=== PATIENT | male | born 1955 | race Caucasian/White ===

== ENCOUNTER 2022-09-14 08:50 | Emergency (ER) | payer MEDICARE, OTHER, SELFPAY ==
[2022-09-14 09:22] VITALS: BP 174/67; PULSE 53; RESP 20; TEMP 36.6; O2SAT 99
--- NOTE | 2022-09-14 09:39 | ECG_ITS ---
Measurements Intervals [place] Rate: 53 P: -5 ME: 208 QRS: 49 QRSD: 97 T: 34 QT: 437 QTc: 414 Interpretive Statements SINUS BRADYCARDIA OTHERWISE NORMAL NO PREVIOUS ECG AVAILABLE FOR COMPARISON Electronically Signed On 09-15-2022 6:14:23 CLIENT SERVICES ASSISTANT by Jamel Biswas M.D.
--- NOTE | 2022-09-14 09:54 | ED.GENADULT ---
HPI - General Adult General Chief complaint: Weakness Stated complaint: Hypertension Time Seen by Provider: 09/14/22 09:35 Source: patient Mode of arrival: ambulatory Limitations: no limitations History of Present Illness HPI narrative: 67-year-old male presents with complaint of generalized weakness, body aches and chills, fatigue starting this morning. reports that when he smelled breakfast cooking he felt nauseated, vomited once. Continues to feel nauseated. Reports that his family that he is staying with at this time had flu approximately 1 week ago. Is visiting from 2[place]5 hours away to see grandpeggy's [employer] program, was heading back home today. He reports history of AFib. Wears a walker to keep track of heart rate and has been anywhere from 40s to 122. Has not missed any doses of his medications. States he checks blood pressure at today and was high. No headache, chest pain or shortness of breath. All systems reviewed and negative except as noted above. Related Data Home Medications Medication Instructions Recorded Confirmed rivaroxaban 20 mg tablet (Xarelto) 20 mg PO DAILY 09/14/22 09/14/22 sotalol 160 mg tablet 160 mg PO DAILY 09/14/22 09/14/22 tamsulosin 0.4 mg capsule 0.4 mg PO DAILY 09/14/22 09/14/22 Allergies Allergy/AdvReac Type Severity Reaction Status Date / Time Tetracyclines Allergy Other Verified 09/14/22 09:20 Review of Systems Review of Systems: CONSTITUTIONAL: Denies fever . Reports chills, pain and sweats. EYES: Denies visual changes, redness, or discharge. ENT: Denies rhinorrhea, congestion, sore throat, or otalgia. CARDIOVASCULAR: Denies chest pain, palpitations, or edema. RESPIRATORY: Denies cough or dyspnea. GASTROINTESTINAL: Denies abdominal pain. Reportsnausea, vomiting. Denies diarrhea. GENITOURINARY: Denies dysuria or hematuria. SKIN: Denies rash or itching. MUSCULOSKELETAL: Denies back pain, joint pain. Reports myalgia. NEUROLOGIC: Denies headache, numbness, or weakness. PSYCHIATRIC: Denies anxiety or depression. All other systems reviewed are negative, except as documented in HPI. [facility] Comments At time of signature, agree with nursing past medical, surgical, social and family history. There is no relevant family history pertinent to the presenting complaint. Exam Narrative: GENERAL: This is a well-nourished, well-developed patient. Patient ill-appearing but no distress. HEAD: normocephalic, atraumatic. EYES: PERRL. Sclera clear/white. Vision is grossly intact. EARS: External ears normal, auditory canals clear and without drainage, TMs normal without perforation. Hearing grossly intact. NOSE: External nose normal with no obvious nasal discharge, nares without redness, no rhinorrhea. THROAT: Mucous membranes moist, posterior pharynx clear. NECK: Neck supple, non-tender without lymphadenopathy, masses or thyromegaly. CARDIOVASCULAR: Bradycardia without murmurs, gallops, or rubs. RESPIRATORY: Clear to auscultation. Breath sounds equal bilaterally. No wheezes, rales, or rhonchi. GASTROINTESTINAL: Abdomen soft, non-tender, nondistended. Bowel sounds are active. No hepato-splenomegaly, or palpable masses. No guarding. SKIN: warm, Dry, intact with no suspicious lesions or rash, good texture and turgor. NEURO: awake, alert, and oriented to person, place and time. There were no obvious focal neurologic abnormalities. EXTREMITIES: No joint tenderness, effusion, or edema noted. BACK: Nontender without deformity. Course Course Level of Care: Express Care Visit Vital Signs Vital signs: Vital Signs Temperature 36.6 C 09/14/22 09:22 Pulse Rate 53 L 09/14/22 09:22 Respiratory Rate 20 09/14/22 09:22 Blood Pressure 174/67 H 09/14/22 09:22 Pulse Oximetry 99 09/14/22 09:22 Oxygen Delivery Room Air 09/14/22 09:22 Temperature 36.6 C 09/14/22 09:22 Pulse Rate 53 L 09/14/22 09:22 Respiratory Rate 20 09/14/22 09:22 Blood Pressure 174/67 H 09/14/22 09:
== END 2022-09-14 10:40 | disposition home or self-care (01) ==
PROVIDERS: Emergency Provider Nurse Practitioner Family
DX: B34.9 Viral infection, unspecified (principal); Z20.822 Contact with and (suspected) exposure to COVID-19
CPT/HCPCS: 81003; 87086; 87426; 87804; 93005; 99203; C9803; G0463